=== PATIENT | male | born 1995 | race Caucasian/White ===

== ENCOUNTER → 2023-11-20 15:41 | Outpatient (REF) | payer OTHER, SELFPAY | LOC: RAD 15:41 | PROVIDERS: ATTENDING PHYSICIAN Family Medicine | DX: M54.50 Low back pain, unspecified (principal); M25.552 Pain in left hip | CPT/HCPCS: 72100; 73502 ==

== ENCOUNTER → 2023-12-03 16:04 | Outpatient (REF) | payer OTHER, SELFPAY | LOC: MRI 3T 16:04 | PROVIDERS: ATTENDING PHYSICIAN Anesthesiology; FAMILY PHYSICIAN Family Medicine | DX: M54.16 Radiculopathy, lumbar region (principal) | CPT/HCPCS: 72148 ==

== ENCOUNTER 2024-04-27 13:14 | Outpatient (RCR) | payer BC, SELFPAY | END 2024-04-27 23:59 | disposition home or self-care (01) | LOC: RPT 13:14 | PROVIDERS: ATTENDING PHYSICIAN Specialist; FAMILY PHYSICIAN Family Medicine | DX: M54.16 Radiculopathy, lumbar region (principal); Z73.6 Limitation of activities due to disability; M62.81 Muscle weakness (generalized); M79.605 Pain in left leg | CPT/HCPCS: 97110; 97140; 97162 ==

== ENCOUNTER 2024-05-16 09:04 | Outpatient (RCR) | payer BC, SELFPAY | END 2024-05-16 23:59 | disposition home or self-care (01) | LOC: RPT 09:04 | PROVIDERS: ATTENDING PHYSICIAN Specialist; FAMILY PHYSICIAN Family Medicine | DX: M54.16 Radiculopathy, lumbar region (principal); M79.605 Pain in left leg; M62.81 Muscle weakness (generalized); Z73.6 Limitation of activities due to disability | CPT/HCPCS: 97110; 97140 ==

== ENCOUNTER 2024-06-14 09:16 | Outpatient (RCR) | payer BC, SELFPAY | END 2024-06-14 23:59 | disposition home or self-care (01) | LOC: RPT 09:16 | PROVIDERS: ATTENDING PHYSICIAN Specialist; FAMILY PHYSICIAN Family Medicine | DX: M54.16 Radiculopathy, lumbar region (principal); M62.81 Muscle weakness (generalized); M79.605 Pain in left leg; Z73.6 Limitation of activities due to disability | CPT/HCPCS: 97110; 97140 ==

== ENCOUNTER 2024-06-29 10:44 | Outpatient (RCR) | payer BC, SELFPAY | END 2024-06-29 23:59 | disposition home or self-care (01) | LOC: RPT 10:44 | PROVIDERS: ATTENDING PHYSICIAN Specialist; FAMILY PHYSICIAN Family Medicine | DX: M54.16 Radiculopathy, lumbar region (principal); M62.81 Muscle weakness (generalized); M79.605 Pain in left leg; Z73.6 Limitation of activities due to disability | CPT/HCPCS: 97110; 97140 ==